=== PATIENT | female | born 1995 | race Hispanic/Latino ===

== ENCOUNTER 2019-04-19 13:30 | Outpatient (CLI) | payer MEDICAID ==
--- NOTE | 2019-04-19 14:43 | ULT ---
Exam: Transabdominal and endovaginal pelvic ultrasound HISTORY:Irregular menses COMPARISON: None TECHNIQUE: Transabdominal and endovaginal imaging of the pelvis is performed. Ovaries are interrogate d with grayscale, color flow, Doppler imaging and spectral wave form analysis FINDINGS: Uterus: No myometrial masses. Uterus measurin.5 x 3.1 x 3.8 cm. Endometrium: Homogeneous echotexture. Endometrium diameter: 0.8 cm. Small nabothian cyst is noted. Free fluid: None Right ovary: Normal echotexture. Anechoic focus in the right ovary measures 2.0 x 1.7 x 2.0 cm, sugge sting a dominant follicle. Right ovary measurement: 3.4 x 2.1 x 2.8 cm Left ovary: Normal echotexture. Left ovary measurements: 1.7 x 2.3 x 2.3 cm Ovarian Doppler: There is vascular flow to the left and right ovary. IMPRESSION: 1. Dominant follicle in the right ovary. 2. Homogeneous echotexture of the endometrium. Endometrial diameter is 0.8 cm
== END 2019-04-19 13:31 | disposition home or self-care (01) ==
LOC: BICULT 13:30
PROVIDERS: ATTEND Physician Assistant
DX: N92.6 Irregular menstruation, unspecified (principal); R93.49 Abnormal radiologic findings on diagnostic imaging of other urinary organs
CPT/HCPCS: 76856